=== PATIENT | female | born 1995 | race African-American/Black ===

== ENCOUNTER 2016-12-12 20:50 | Emergency (ER) | payer OTHER ==
[~2016-12-12] VITALS: Ht 154.9 cm; Wt 45.4 kg
[~2016-12-12 20:50] MED LIST: BACTRIM DS 8001 TAB PO; DAILY VALUE1 EACH PO; DEPO-PROVER150 MG/ML IM; JUNEL FE 1 MG-1 EACH PO; MULTIVITAMINS1 EAC8 PO; NAPROXEN500 MG PO; VALACYCLOVIR500 M1 PO; VISTARIL25 M1 PO
--- NOTE | 2016-12-12 22:30 | ED GI/GU/ABDOMINAL COMPLAINT ---
History of Present Illness General Chief Complaint: Abdominal Pain/Flank Pain Stated Complaint: ABD. PAIN X 1WK Source: patient, old records Exam Limitations: no limitations Vital Signs & Intake/Output Vital Signs & Intake/Output Vital Signs Date Time Temp Pulse Resp B/P Pulse O2 O2 Flow FiO2 Ox Delivery Rate 12/12 2330 97.5 76 18 100/70 97 Room Air 12/12 2252 Room Air 12/12 2054 97.3 75 20 97/65 96 Room Air ED Intake and Output 12/13 0000 12/12 1200 Intake Total 0 Output Total Balance 0 Intake, Oral 0 Patient 99 lb 15.99 oz Weight Allergies Coded Allergies: MDX - Apple (APPLE) (MOUTH ITCHES, THROAT ITCHES, EARS ITCH, TINGLING OF TONGUE 09/24/15) Reconcile Medications Hydroxyzine Pamoate (Vistaril) 25 MG CAPSULE 1 CAP PO QHS PRN ANXIETY Hydroxyzine Pamoate (Vistaril) 25 MG CAPSULE 1 CAP PO QHS PRN ANXIETY Medroxyprogesterone Acetate (Depo-Provera) 150 MG/ML SYRINGE 1 ML IM Q3M CONTROL (Reported) Multivitamin (Multivitamins) 1 EACH CAPSULE 1 TAB PO D MALNUTRITION Multivitamin (Daily Value) 1 EACH TABLET 1 TAB PO DAILY OTHER Naproxen 500 MG TAB 1 TAB PO BID PRN PAIN Norethindrone-E.estradiol-Iron (Junel Fe 1 MG-20 Mcg Tablet) 1 MG-20 MCG (21)/75 MG (7) TABLET 1 TAB PO DAILY CONTROL (Reported) Sulfamethoxazole/Trimethopri (Bactrim Ds 800 MG-160 MG) 1 TAB TAB 1 TAB PO BID UTI Valacyclovir HCl (Valacyclovir) 500 MG TABLET 1 TAB PO DAILY HERPES (Reported ) Triage Note: REPORTS ABDOMINAL PAIN X 1 WEEK WITH NAUSEA AND INTERMITTENT VOMITING. SHE WILL LIKE TO RULE OUT . Triage Nurses Notes Reviewed? yes ? N Is pt currently ? No Onset: Abrupt Duration: day(s): (3) Timing: recent history Location: suprapubic Radiation: no radiation Prior Abdominal Problems: none HPI: This is a 21-year-old female presents to the ER with chief complaint of lower abdominal cramping for the past few days. She is questioning whether or not to be . Patient had intercourse on the and and when the occasions a condom broke. She gets very regular. Speech is on a control. Denies any fever or chills. One episode of vomiting. Denies any vaginal discharge or dysuria. Patient presented requesting a test. Past History Travel History Traveled to [place] past 21 day No Medical History Any Pertinent Medical History? 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 No Review of Systems Review of Systems Constitutional: Denies: chills, fever. EENTM: Reports: no symptoms. Respiratory: Denies: cough, short of breath. Cardiovascular: Denies: chest pain. GI: Reports: abdominal pain, nausea, vomiting (X1). Denies: constipation, diarrhea. Genitourinary: Reports: discharge (SPOTTING). Denies: dysuria, frequency, hematuria. Musculoskeletal: Reports: no symptoms. Skin: Reports: no symptoms. Neurological/Psychological: Reports: no symptoms. Hematologic/Endocrine: Reports: bleeding. Denies: bruising, polyuria, polydipsia. Immunologic/Allergic: Denies: splenectomy. All Other Systems: Reviewed and Negative Physical Exam Physical Exam General Appearance: alert, anxious, mild distress, thin Head: atraumatic, normal appearance Eyes: Bilateral: normal appearance, PERRL, EOMI. Ears, Nose, Throat, Mouth: hearing grossly normal, moist mucous membrane Neck: normal inspection, supple, full range of motion Respiratory: normal breath sounds, chest non-tender, no respiratory distress Cardiovascular: regular rate/rhythm Peripheral Pulses: 2+ brachial (L), 2+ radial (L) Gastrointestinal: normal bowel sounds, soft, tenderness (SUPRAPUBIC) Extremities: normal range of motion Neurologic/Psych: no motor/sensory deficits, awake, alert, oriented x 3 Skin: intact, normal color, warm/dry Core Measures ACS in differential dx? No Severe Sepsis Present: No Septic Shock Present: No Progress Differential Diagnosis: UTI/pyelo, , STD Plan of Care: Orders Procedure Date/time Status URINE 12/12 2057 Complete URINALYSIS 12/12 2057 Complete Laboratory Tests 12/12/165: Urinalysis LIGHT H, Urine Color YEL, Urine Clarity CLEAR, Urine pH 6.0, Ur Specific Freeman 1.025, Urine Protein NEG, Urine Ketones NEG, Urine Nitrite NEG, Urine Bilirubin NEG, Urine Urobilinogen 0.2, Ur Leukocyte Esterase NEG, Ur Microscopic SEDIMENT EXAMINED, Urine RBC 1-3, Urine WBC RARE, Ur Epithelial Cells FEW, Urine Mucus FEW, Urine Hemoglobin TRACE-INTACT, Urine Glucose NEG, Urine Test NEGATIVE Urinalysis, urine ordered (LATOYA YOUNGER,THAO) Initial ED EKG: none Departure Departure Time of Disposition: 2315 Disposition: HOME OR SELF CARE Condition: Stable Clinical Impression Primary Impression: Abdominal pain Referrals: BIANCA YOUNGER,CARISSA Lester (PCP/Family) Additional Instructions: Take Tylenol as needed for abdominal cramping. Clear liquid diet and advance as tolerated. Return to the ER for any worsening symptoms, fever, chills, vomiting. 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 Departure Forms: Customer Survey General Discharge Information
[2016-12-12 23:30] VITALS: BP 100/70
== END 2016-12-13 00:05 ==
LOC: ERH 20:50
DX: R10.30 Lower abdominal pain, unspecified (principal)
CPT/HCPCS: 81001; 81025

== ENCOUNTER → 2017-02-08 | Day surgery (SDC) | payer OTHER ==
[~2017-02-08] VITALS: Ht 154.9 cm; Wt 47.6 kg
[~2017-02-08] MED LIST changes: +LIDOCAINE35.44 GM TOP
--- NOTE | 2017-02-09 11:30 | Operative Report ---
Operative/Inv Procedure Report Surgery Date: 02/08/17 Name of Procedure: D&C hysteroscopy Pre-Operative Diagnosis: Abnormal uterine bleeding Post-Operative Diagnosis: Same Estimated Blood Loss: scant Surgeon/Equine Vet: RILEY ELLIOTT MD Anesthesia: moderate sedation Operative/Procedure Note Note: The patient was brought to the operating room and placed on the OR table in the dorsal supine position. She was given adequate anesthesia and repositioned in a modified dorsal lithotomy. She was prepped and draped in usual sterile fashion. A weighted speculum was inserted into the vagina with help of a Griffin retractor single-tooth tenaculum was attached to the anterior lip of the cervix. The cervix was injected with 1% lidocaine with epinephrine 2-1/2 mL in each quadrant. An endocervical curettage was performed revealing a moderate amount of tissue. The uterus was then sounded to 8 cm anteverted. The cervix was serially dilated to accommodate the hysteroscope. The hysteroscope was placed and the saline infusion was activated. The johnson of the uterus were completely thinned out and there was no fibroid or polyp noted throughout the endometrial cavity. Hysteroscope was then removed the cervix was further dilated and an endometrial curettage was performed revealing a minimal amount of tissue. At this point the isthmus removed patient was awakened and sent to recovery in good condition. All needle, sponge, and instrument counts were correct at the end of the procedure 2.
== END ==
LOC: STS 03:57
DX: N93.9 Abnormal uterine and vaginal bleeding, unspecified (principal)
CPT/HCPCS: 81025; 88305; J2250

== ENCOUNTER 2017-03-17 20:21 | Emergency (ER) | payer OTHER ==
[~2017-03-17] VITALS: Ht 170.2 cm; Wt 52.2 kg
[~2017-03-17 20:21] MED LIST changes: -LIDOCAINE35.44 GM TOP
--- NOTE | 2017-03-17 20:24 | ED PSYCHIATRIC COMPLAINT ---
History of Present Illness General Chief Complaint: Psychiatric Related Complaint Stated Complaint: BIBA +SI, ANXIETY ATTACK, HYPERVENTILATING Source: patient, EMS Exam Limitations: PT IS TEARFUL, NOT RESPONDING TO QUESTIONS Vital Signs & Intake/Output Vital Signs & Intake/Output Vital Signs Date Time Temp Pulse Resp B/P B/P Pulse O2 O2 Flow FiO2 Mean Ox Delivery Rate 03/18 1152 97.1 76 18 113/57 98 Room Air 03/18 0657 96.0 69 16 104/49 100 Room Air Room Air 03/17 2305 97.8 66 20 111/59 100 Room Air 03/17 2112 97.1 94 22 130/78 96 Room Air 03/17 2032 Room Air ED Intake and Output 03/18 0000 03/17 1200 Intake Total 0 Output Total Balance 0 Intake, Oral 0 Patient 115 lb Weight Weight Estimated Measurement Method Allergies Coded Allergies: apple (THROAT ITCHES, EAR ITCHES, MOUTH ITCHES, TINGLING OF TONGUE 03/17/17) Reconcile Medications Lidocaine HCl (Lidocaine) 5 % OINT...G. 1 AMIRA TOP BID AFFECTED AREA(S) ( Reported) Norethindrone-E.estradiol-Iron (Junel Fe 1 MG-20 Mcg Tablet) 1 MG-20 MCG (21)/75 MG (7) TABLET 1 TAB PO DAILY CONTROL (Reported) Triage Nurses Notes Reviewed? yes Onset: Gradual Duration: hour(s): Timing: single episode today Severity: moderate Associated Symptoms: anxiety, suicidal ideation, TEARFULNESS HPI: 21 yo woman presents with tearfulness, anxiety, and suicidal ideation after an argument with family. (ANGELIKA YOUNGER,LANETTE De La Rosa) Past History Travel History Traveled to [place] past 21 day No Medical History Any Pertinent Medical History? 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 No (ANGELIKA YOUNGER,LANETTE De La Rosa) Review of Systems Review of Systems Constitutional: Reports: no symptoms. EENTM: Reports: no symptoms. Respiratory: Reports: no symptoms. Cardiovascular: Reports: no symptoms. GI: Reports: no symptoms. Genitourinary: Reports: no symptoms. Musculoskeletal: Reports: no symptoms. Skin: Reports: no symptoms. Neurological/Psychological: Reports: no symptoms. Hematologic/Endocrine: Reports: no symptoms. Immunologic/Allergic: Reports: no symptoms. All Other Systems: Reviewed and Negative (ANGELIKA YOUNGER,LANETTE De La Rosa) Physical Exam Physical Exam General Appearance: well developed/nourished, mild distress Head: atraumatic Eyes: Bilateral: PERRL, EOMI. Ears, Nose, Throat: normal pharynx, normal ENT inspection, hearing grossly normal Neck: normal inspection, supple Respiratory: normal breath sounds Cardiovascular: regular rate/rhythm Gastrointestinal: soft, non-tender Extremities: normal range of motion Neurological/Psychiatric: tearfulness, anxiety Appearance/Memory/Insight: appropriate appearance Behavoir/Eye Contact/Speech: avoids eye contact, refused to answer, tearfulness Thoughts/Hallucinations: no apparent hallucination Skin: intact, normal color, warm/dry SAD PERSONS SAD PERSONS Response Value Depression/Hopelessness? yes 2 Social Support? has no support 1 Total 3 SAD PERSONS Done? yes (ANGELIKA YOUNGER,LANETTE De La Rosa) Progress Differential Diagnosis: anxiety, suicidality vs other. Plan of Care: Orders Procedure Date/time Status Regular Diet 03/18 B Active Continuous Observation Monitor 03/18 1900 Active Continuous Observation Monitor 03/18 1500 Active Continuous Observation Monitor 03/18 1100 Active Continuous Observation Monitor 03/18 0700 Active Continuous Observation Monitor 03/17 2058 Active ED CRISIS PSYCH CONSULT 03/17 2058 Active URINE DRUG SCREEN FOR ER ONLY 03/17 2033 Complete HUMAN BETA HCG SCREEN 03/17 2033 Complete ETHANOL 03/17 2033 Complete COMPREHENSIVE METABOLIC PANEL 03/17 2033 Complete CBC WITHOUT DIFFERENTIAL 03/17 2033 Complete Laboratory Tests 03/17/17 2221: Anion Gap 10, Estimated GFR > 60, BUN/Creatinine Ratio 13.8, Glucose 89, Calcium 8.9, Total Bilirubin 0.3, AST 18, ALT 32, Alkaline Phosphatase 51, Total Protein 6.3, Albumin 3.8, Globulin 2.5, Albumin/Globulin Ratio 1.5, Total Beta HCG NEGATIVE, CBC w Diff NO MAN DIFF REQ, RBC 4.23, MCV 86.0, MCH 28.2, RDW 13.6, MPV 10.2, Gran % 72.7, Lymphocytes % 19.7 L, Monocytes % 4.3, Eosinophils % 2.9 , Basophils % 0.4, Absolute Granulocytes 6.3, Absolute Lymphocytes 1.7, Absolute Monocytes 0.4, Absolute Eosinophils 0.3, Absolute Basophils 0, PUBS MCHC 32.8 L , Serum Alcohol < 10.0 03/17/173: Urine Opiates Screen < 100.00, Methadone Screen 46, Barbiturate Screen < 60, Ur Phencyclidine Scrn < 6.00, Amphetamines Screen < 100, U Benzodiazepines Scrn < 85, Urine Cocaine Screen < 50, Urine Cannabis Screen > 80.00 H Hand-Off Endorsed To: GODFREY ALFARO MD (ANGELIKA YOUNGER,LANETTE De La Rosa) Comments: Cleared by psychiatry for discharge (GODFREY ALFARO MD) Departure Departure Condition: Stable Clinical Impression Primary Impression: Depression Secondary Impressions: Cannabis abuse Referrals: CARISSA VALENZUELA MD (PCP/Family) Departure Forms: Customer Survey General Discharge Information Comments pt evaluated by crises... pt to have a bed search for admission. (LANETTE CARNEY MD) Departure Time of Disposition: 1446 Disposition: HOME OR SELF CARE Additional Instructions: Follow up with the recommendations of the warehouse insulation worker (GODFREY ALFARO MD)
[2017-03-17] MEDS ORDERED: LIDOCAINE35.44 GM TOP (20:42)
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
[2017-03-17 22:27] LABS: ABSOLUTE BASOPHIL COUNT 0 /CUMM (0.0-0.2); ABSOLUTE EOSINOPHIL COUNT 0.3 /CUMM (0.0-0.7); ABSOLUTE GRANULOCYTE CT 6.3 /CUMM (1.4-6.5); ABSOLUTE LYMPH COUNT 1.7 /CUMM (1.2-3.4); ABSOLUTE MONOCYTE COUNT 0.4 /CUMM (0.10-0.60); BASOPHIL % 0.4 % (0.0-2.0); EOSINOPHIL % 2.9 % (0-5); GRANULOCYTE % 72.7 % (42.2-75.2); HEMATOCRIT 36.4 % (37-47); MEAN CORPUSCULAR HGB 28.2 PG (27.0-31.0); MEAN CORPUSCULAR HGB CONC 32.8 G/DL (33.0-37.0); MEAN PLATELET VOLUME 10.2 FL (7.4-10.4); PLATELET COUNT 168 /CUMM (130-400); RBC DISTRIBUTION WIDTH 13.6 % (11.5-14.5); RED BLOOD CELL CT 4.23 /CUMM (4.20-5.40); WHITE BLOOD CELL COUNT 8.7 /CUMM (4.8-10.8)
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
--- NOTE | 2017-03-18 14:39 | ED PSYCHIATRIST/APRN CONSULT ---
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 She notes that she uttered statements around hurting herself in the setting of arugment with borther. She notes long-standing interpersonal difficulty with family. She notes supportive uncle who lives [place] and plans to contact him so that she can move away from her family. She denies current active or passive SI. Denies SI. Denies manic, psychotic or trauma-related sx. Notes poor mood. Amenable to outpatient f/u. MSE younger than stated age, cooperative, engaged, good eye contact, no psychomotor agitation or retardation, mood "ok" affect sad, appropriate, full range, non- labile, denies Si or HI, denies AVHs, linear and goal directed thought process, does not appear to be responding to internal stimuli. A/P: pt with some poor mood and anxiety in the setting of interpersonal conflict who uttered concerning statement in the heat of verbal altercation with brother. No evidence for passive or active SI or SA in the past. Family members have no concerns about safety. Pt would benefit from treatment of anxiety and depression as well as increased support. At this time, pt is not a danger to self or others. - Pt given appointment for [facility] - mother to pickle maker and is amenable to facilitating treatment for her daughter - pt educated can call 911 or come to hospital if thoughts of harm to self or others or worsening depression or anxiety.
[2017-03-18 15:10] VITALS: BP 123/56
== END 2017-03-18 16:10 ==
LOC: ERH 20:21
PROVIDERS: Pediatrics
DX: F32.9 Major depressive disorder, single episode, unspecified (principal); F12.10 Cannabis abuse, uncomplicated
CPT/HCPCS: 80307; G0463; G0480

== ENCOUNTER 2017-05-17 12:48 | Emergency (ER) | payer OTHER ==
[~2017-05-17] VITALS: Ht 152.4 cm; Wt 49.9 kg
[~2017-05-17 12:48] MED LIST changes: +LIDOCAINE35.44 GM TOP
[2017-05-17 12:53] VITALS: BP 106/69
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
--- NOTE | 2017-05-17 14:10 | RADIOLOGY REPORT ---
EXAMINATION: XR FOREARM, WRIST LEFT CLINICAL INFORMATION: Pain status post trauma. COMPARISON: None TECHNIQUE: AP and lateral views of the left forearm were obtained. FINDINGS: Bone mineral density is maintained without evidence of fracture or dislocation. No focal osseous lesions are seen. There is lunotriquetral fusion, normal variation. Joint space is maintained without productive or erosive changes. IMPRESSION: Unremarkable examinations.
[2017-05-17] MEDS ORDERED: IBUPROFEN600 M1 PO (16:05)
== END 2017-05-17 16:11 ==
LOC: ERH 12:48
DX: S63.502A Unspecified sprain of left wrist, initial encounter (principal); Y35.893A Legal intervention involving other specified means, suspect injured, initial encounter; Y92.9 Unspecified place or not applicable; Y93.9 Activity, unspecified; M25.522 Pain in left elbow; F17.210 Nicotine dependence, cigarettes, uncomplicated
CPT/HCPCS: 73090-LT; 73110-LT; 80307; 81025

== ENCOUNTER 2017-12-20 12:01 | Inpatient (IN) | payer OTHER ==
[~2017-12-20] VITALS: Ht 157.5 cm; Wt 45.5 kg
[~2017-12-20 12:01] MED LIST changes: +BACTRIM DS TAB1 EACH PO; +DIFLUCAN150 M1 PO; +IBUPROFEN600 M1 PO; +PYRIDIUM100 M1 PO
--- NOTE | 2017-12-20 12:05 | ED PSYCHIATRIC COMPLAINT ---
History of Present Illness General Chief Complaint: Psychiatric Related Complaint Stated Complaint: BIBA FOR SI/OD Allergies Coded Allergies: apple (THROAT ITCHES, EAR ITCHES, MOUTH ITCHES, TINGLING OF TONGUE 03/17/17) Reconcile Medications Fluconazole (Diflucan) 150 MG TABLET 1 TAB PO ONCE PROPHYLAXIS Ibuprofen 600 MG TABLET 1 TAB PO TID PRN PAIN with food Lidocaine HCl (Lidocaine) 5 % OINT...G. 1 AMIRA TOP BID AFFECTED AREA(S) ( Reported) Norethindrone-E.estradiol-Iron (Junel Fe 1 MG-20 Mcg Tablet) 1 MG-20 MCG (21)/75 MG (7) TABLET 1 TAB PO DAILY CONTROL (Reported) Phenazopyridine HCl (Pyridium) 100 MG TABLET 1-2 TAB PO TID PRN DYRSURIA MAY TURN URINE ORANGE, TAKE WITH FOOD Sulfamethoxazole/Trimethoprim (Bactrim Ds Tablet) 800 MG-160 MG TABLET 1 TAB PO BID UTI Past History Travel History Traveled to [place] past 21 day No Medical History Neurological: NONE EENT: NONE Cardiovascular: NONE Respiratory: NONE Gastrointestinal: NONE Hepatic: NONE Renal: NONE Musculoskeletal: OSTEOGENESIS IMPERFECTA Psychiatric: anxiety, depression Endocrine: NONE Blood Disorders: NONE Cancer(s): NONE 

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
[2017-12-20 12:53] LABS: ABSOLUTE BASOPHIL COUNT 0 /CUMM (0.0-0.2); ABSOLUTE EOSINOPHIL COUNT 0 /CUMM (0.0-0.7); ABSOLUTE GRANULOCYTE CT 2.8 /CUMM (1.4-6.5); ABSOLUTE LYMPH COUNT 0.9 /CUMM (1.2-3.4); ABSOLUTE MONOCYTE COUNT 0.2 /CUMM (0.10-0.60); BASOPHIL % 0.3 % (0.0-2.0); EOSINOPHIL % 0.9 % (0-5); GRANULOCYTE % 70.2 % (42.2-75.2); HEMATOCRIT 35.2 % (37-47); MEAN CORPUSCULAR HGB 28.1 PG (27.0-31.0); MEAN CORPUSCULAR HGB CONC 33.1 G/DL (33.0-37.0); MEAN CORPUSCULAR VOLUME 84.8 FL (81.0-99.0); MEAN PLATELET VOLUME 9.9 FL (7.4-10.4); PLATELET COUNT 161 /CUMM (130-400); RBC DISTRIBUTION WIDTH 13.4 % (11.5-14.5); RED BLOOD CELL CT 4.15 /CUMM (4.20-5.40)
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
--- NOTE | 2017-12-20 18:45 | ED PSYCH CRISIS CONSULTATION ---
Crisis Consult Basic Assessment Date of Consult: 12/20/17 Responsible Person/Accompanied By: CLARITA Insurance Authorization: Insurance #1: Insurance name: [employer] Phone number: Policy number: Group number: Authorization number: ED Provider: Patient's ED Provider: Deysi Marcos MD Primary Care Physician: Patient's PCP: Saul Trevino MD PCP's Current Psychiatrist: [facility] Chief Complaint: Psychiatric Related Complaint Who Do You Live With? Other (see notes) Allergies - Coded Allergies: apple (THROAT ITCHES, EAR ITCHES, MOUTH ITCHES, TINGLING OF TONGUE 03/17/17) Current Medications - Scheduled Medications Fluconazole (Diflucan) 150 MG TABLET 1 TAB PO ONCE PROPHYLAXIS #1 TAB Prescribed by Pamela Cardoza on 10/03/17 Lidocaine HCl (Lidocaine) 5 % OINT...G. 1 AMIRA TOP BID AFFECTED AREA(S) ( Reported) Entered as Reported by Aziza Dior on 03/17/172041 Norethindrone-E.estradiol-Iron (Junel Fe 1 MG-20 Mcg Tablet) 1 MG-20 MCG (21)/75 MG (7) TABLET 1 TAB PO DAILY CONTROL #28 (Reported) Entered as Reported by Renetta Philip on 11/12/16 1354 Scheduled PRN Medications Ibuprofen 600 MG TABLET 1 TAB PO TID PRN PAIN #30 TAB Prescribed by Mega Krishna DO on 05/17/17 Phenazopyridine HCl (Pyridium) 100 MG TABLET 1-2 TAB PO TID PRN DYRSURIA #10 TAB Prescribed by Pamela Cardoza on 10/03/17 Past History Past Medical History Neurological: NONE EENT: NONE Cardiovascular: NONE Respiratory: NONE Gastrointestinal: NONE Hepatic: NONE Renal: NONE Musculoskeletal: OSTEOGENESIS IMPERFECTA Psychiatric: anxiety, depression Endocrine: NONE Blood Disorders: NONE Cancer(s): NONE 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 is motivated to pursue higher education and is interested in either cosmetology or pre-veterinary medicine. Pt. is active in her restorationism. Physical Limitations (Interventions): None indicated Psychiatric Treatment History Diagnosis by History: Unknown - no past mental health treatment history reported by patient. Departure Disposition Referrals Uriel YOUNGER,Saul Lester (PCP/Family) Saul Trevino MD. (PCP/Family)
--- NOTE | 2017-12-20 19:10 | ED PSYCH CRISIS CONSULTATION ---
See Addendum Crisis Consult Basic Assessment Date of Consult: 12/20/17 Responsible Person/Accompanied By: BIBA/PEER Insurance Authorization: Insurance #1: Insurance name: UNINSURED LOVE Phone number: Policy number: Group number: Authorization number: ED Provider: Patient's ED Provider: Deysi Marcos MD Primary Care Physician: Patient's PCP: Saul Trevino MD PCP's Current Psychiatrist: [facility] Chief Complaint: Psychiatric Related Complaint Patient's Quote: "I took a few pills" Present Illness: Pt is a 22 year female arriving to ER on [facility]ER, for taking a few pills in an attempt to suicide. Pt has no previous attempts and has never been admitted to an inpatient hospital before. She is seen for therapy at [facility], her counselor is Mira. Pt was prescribed Atarax in the ER, and that is what she took today, with intention not to wake up. Pt denies drug and etoh use tox screen is negative. Pt is shy, quiet, tearful. She offers a male friend of hers, whom she trusted with details of whats going on in her life "he was there for me" , "he told me he wanted me , so I tried". She says this as a matter of fact. She indicates he kept telling her this over and over, he has some influence over you, but would you now consider him a friend, when asked this she stated no, he got weird, I just knew him from school, he was there for me, pt begins to cry softly. She states she "was overthinking, and wasn't thinking at the time" in regards to taking the pills. She is not talkative. She appears sad, not focused. She eats and sleeps well. Denies hi/ah/vh. She lives at home with her Mother, and works at [employer], she does perk up and show a small smile, when I mention that [employer] has delicious grilled cheese. Aside from this smile, she has flat affect. She denies having a presciber at [facility], and has no other psych services. She is aware that she will be held over tonight with the plan to be admitted to inpatient, currently bed search unless a bed opens [facility]. Spoke to her Mom earlier and she had stated she was concerned for her safety and felt inpatient would be helpful. Patient's Address: [address] [place] [address] [address] Other Phone Number: Who Do You Live With? Other (see notes) Family/Informants Interviewed: see collateral Allergies - Coded Allergies: apple (THROAT ITCHES, EAR ITCHES, MOUTH ITCHES, TINGLING OF TONGUE 03/17/17) Laboratory Results: Laboratory Tests 12/20/17 1242: Anion Gap 8, Estimated GFR > 60, BUN/Creatinine Ratio 10.0, Glucose 82, Calcium 9.2, Total Bilirubin 0.5, AST 17, ALT 23, Alkaline Phosphatase 53, Total Protein 6.0 L, Albumin 3.6, Globulin 2.4, Albumin/Globulin Ratio 1.5, CBC w Diff NO MAN DIFF REQ, RBC 4.15 L, MCV 84.8, MCH 28.1, MCHC 33.1, RDW 13.4, MPV 9.9, Gran % 70.2, Lymphocytes % 23.3, Monocytes % 5.3, Eosinophils % 0.9, Basophils % 0.3, Absolute Granulocytes 2.8, Absolute Lymphocytes 0.9 L, Absolute Monocytes 0.2, Absolute Eosinophils 0, Absolute Basophils 0, Salicylates < 1.0, Acetaminophen < 10.0 L, Serum Alcohol < 10.0 12/20/17 1220: Urine Opiates Screen < 100.00, Methadone Screen < 40, Barbiturate Screen < 60, Ur Phencyclidine Scrn < 6.00, Amphetamines Screen < 100, U Benzodiazepines Scrn < 85, Urine Cocaine Screen < 50, Urine Cannabis Screen 5.50, Urine Test NEGATIVE (Izabela Goldman LCSW) Current Medications - Scheduled Medications Fluconazole (Diflucan) 150 MG TABLET 1 TAB PO ONCE PROPHYLAXIS #1 TAB Prescribed by Pamela Cardoza on 10/03/17 Lidocaine HCl (Lidocaine) 5 % OINT...G. 1 AMIRA TOP BID AFFECTED AREA(S) ( Reported) Entered as Reported by Aziza Dior on 03/17/172041 Norethindrone-E.estradiol-Iron (Junel Fe 1 MG-20 Mcg Tablet) 1 MG-20 MCG (21)/75 MG (7) TABLET 1 TAB PO DAILY CONTROL #28 (Reported) Entered as Reported by Renetta Philip on 11/12/16 1354 Scheduled PRN Medications Ibuprofen 600 MG TABLET 1 TAB PO TID PRN PAIN #30 TAB Prescribed by Mega Krishna DO on 05/17/17 Phenazopyridine HCl (Pyridium) 100 MG TABLET 1-2 TAB PO TID PRN DYRSURIA #10 TAB Prescribed by Pamela Cardoza on 10/03/17 (Hannah Bourne LCSW) Past History Past Medical History Neurological: NONE EENT: NONE Cardiovascular: NONE Respiratory: NONE Gastrointestinal: NONE Hepatic: NONE Renal: NONE Musculoskeletal: OSTEOGENESIS IMPERFECTA Psychiatric: anxiety, depression Endocrine: NONE Blood Disorders: NONE Cancer(s): NONE 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 is motivated to pursue higher education and is interested in either cosmetology or pre-veterinary medicine. Pt. is active in her adventist. Physical Limitations (Interventions): None indicated Psychiatric Treatment History Psych Treatment Psychiatric Treatment Yes Inpatient Treatment No Outpatient Treatment Yes Location of Treatment [facility] Reason for Treatment depression Dates of Treatment currently Response to Treatment unknown Diagnosis by History: "depression" Substance Use/Abuse History Drug Use/Abuse Substances Used/Abused No Substance Abuse Treatment Substance Abuse Treatment Past Substance Abuse [place] No (Izabela Goldman LCSW) Current Mental Status Mental Status Orientation: Person, Place, Situation Affect: Depressed, Flat, Hopeless, Sad Speech: Soft Neuro-vegetative: Concentration Poor, Energy Decreased, Loss of Interest Appearance Appearance- Dress/Hygiene: slightly unkempt, otherwise appropriate Behaviors Thought Process: WNL Thought Content: WNL Memory: WNL Insight: Poor SI/HI Risk Assessment Past Suicidal Ideation/Attempts No Current Suicidal Ideation/Att Yes Past Homicidal Ideation/Att: No Current Homicidal Ideation/Attempts No Degree of Intent: Made Preparations Danger To: Self Gravely Disabled: Lack of Insight, Poor Impulse Control, Poor Judgment Risk Factors: age (under 24/over 65), high anxiety/distress, history of suicide atmpts, lack of outcome concern, limited support Lethality Ratin PTSD Checklist PTSD Done? 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 Pena, bed search, unless a bed [facility] opens. Referrals Uriel YOUNGER,Saul Lester (PCP/Family) (Izabela Goldman LCSW) Addendum Addendum Crisis re-evalauted pt this am. Pt stated she feels a lot better. She rates 0/10 for anxiety and depression. She is sleeping and appetite is normal. SHe denies SI/HI/AH/VH at present. No hx of psychosis. Pt said " this was totally unlike me." Pt would like to go home. She is not in agreement with inpatient hospitalization. Crisis discussed risks and poor judgement of attempted suicide and that pt is acute risk to self. Pt said she understands and if needed she will sign in voluntary at this time. Per collateral with mom: SW checked in and explained the current bed situation. Mom said she would feel safe with her daughter being discharged as she lives with her. Pt is in tx with [facility]. This advertising copywriter explained safety concerns given pt's suicide attempt and will review with psychiatrist. Case reviewed with Dr. Pena and recommends continued bed search given pt's intentional suicide attempt. ISADORA informed both mom and pt and is in agreement with the plan. (Hannah Bourne LCSW)
--- NOTE | 2017-12-21 15:11 | SOCIAL WORKER SOCIAL HX PSYCH ---
Social History Basic Assessment Insurance Authorization: Insurance #1: Insurance name: [employer]INS[employer] LOVE Phone number: Policy number: Group number: Authorization number: Member Name Member ID Member Subscriber Name Subscriber ID GRETA [id number] 1995 [id number] [id number] Pended Authorization # Client Authorization # Type of Request [id number] INITIAL Date of Admission/ Start of Services Requested From Submission Date Curr Source of Income/Entitlements: [facility] Primary Care Physician: Patient's PCP: Saul Trevino MD PCP's Present Problem: Pt is a 22 year female arriving to ER on PEER, for taking a few pills in an attempt to suicide. Pt has no previous attempts and has never been admitted to an inpatient hospital before. She is seen for therapy at [facility], her counselor is Mira. Pt was prescribed Atarax in the ER, and that is what she took today, with intention not to wake up. Pt denies drug and etoh use tox screen is negative. Pt is shy, quiet, tearful. She offers a male friend of hers, whom she trusted with details of whats going on in her life "he was there for me" , "he told me he wanted me , so I tried". She says this as a matter of fact. She indicates he kept telling her this over and over, he has some influence over you, but would you now consider him a friend, when asked this she stated no, he got weird, I just knew him from school, he was there for me, pt begins to cry softly. She states she "was overthinking, and wasn't thinking at the time" in regards to taking the pills. She is not talkative. She appears sad, not focused. She eats and sleeps well. Denies hi/ah/vh. She lives at home with her Mother, and works at [employer], she does perk up and show a small smile, when I mention that [employer] [facility] has delicious grilled cheese. Aside from this smile, she has flat affect. She denies having a presciber at [facility], and has no other psych services. She is aware that she will be held over tonight with the plan to be admitted to inpatient, currently bed search unless a bed opens in [facility]. Spoke to her Mom earlier and she had stated she was concerned for her safety and felt inpatient would be helpful. >>>>>>Izabela Robertstawny [facility] Crisis re-evalauted pt this am. Pt stated she feels a lot better. She rates 0/10 for anxiety and depression. She is sleeping and appetite is normal. SHe denies SI/HI/AH/VH at present. No hx of psychosis. Pt said " this was totally unlike me." Pt would like to go home. She is not in agreement with inpatient hospitalization. Crisis discussed risks and poor judgement of attempted suicide and that pt is acute risk to self. Pt said she understands and if needed she will sign in voluntary at this time. Per collateral with mom: SW checked in and explained the current bed situation. Mom said she would feel safe with her daughter being discharged as she lives with her. Pt is in tx with [facility]. This typewriter assembly and parts inspector explained safety concerns given pt's suicide attempt and will review with psychiatrist. Case reviewed with Dr. Pena and recommends continued bed search given pt's intentional suicide attempt. SW informed both mom and pt and is in agreement with the plan. Pt will be admitted to [facility] . She signed in Voluntary and TEMP ID given : [id number] Primary Language? [place]an Language(s) Spoken At Home: [place]an Living Situation Other Living Arrangement: relative's/guardian's niesha Feel Safe Where You Are Living Yes Allergies - Coded Allergies: apple (THROAT ITCHES, EAR ITCHES, MOUTH ITCHES, TINGLING OF TONGUE 03/17/17) Current Medications - Scheduled Medications Fluconazole (Diflucan) 150 MG TABLET 1 TAB PO ONCE PROPHYLAXIS #1 TAB Prescribed by Pamela Cardoza on 10/03/17 Lidocaine HCl (Lidocaine) 5 % OINT...G. 1 AMIRA TOP BID AFFECTED AREA(S) ( Reported) Entered as Reported by Aziza Dior on 03/17/172041 Norethindrone-E.estradiol-Iron (Junel Fe 1 MG-20 Mcg Tablet) 1 MG-20 MCG (21)/75 MG (7) TABLET 1 TAB PO DAILY CONTROL #28 (Reported) Entered as Reported by Renetta Philip on 11/12/16 1354 Scheduled PRN Medications Ibuprofen 600 MG TABLET 1 TAB PO TID PRN PAIN #30 TAB Prescribed by Mega Krishna DO on 05/17/17 Phenazopyridine HCl (Pyridium) 100 MG TABLET 1-2 TAB PO TID PRN DYRSURIA #10 TAB Prescribed by Pamela Cardoza on 10/03/17 Past History Past Medical History Neurological: NONE EENT: NONE Cardiovascular: NONE Respiratory: NONE Gastrointestinal: NONE Hepatic: NONE Renal: NONE Musculoskeletal: OSTEOGENESIS IMPERFECTA Psychiatric: anxiety, depression Endocrine: NONE Blood Disorders: NONE Cancer(s): NONE 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 No Mother's Age (Current/): 46 Relationship w/Mother: we don't talk much Father's Age (Current/): 52 Relationship w/Father: no relationship Any Sibling(s)? Yes Sibling's Gender(s)/Age(s): male Sibling 1:, male Sibling 2:, female Sibling 3: Relationship w/Sibling(s): good Relationship w/Friends: ok Number of Pregnancies: 0 Number of Miscarriages: 0 Number of Abortions: 0 Abuse/Trauma History Trauma History/Current Trauma: Denies Legal History Legal Guardian/Address/Phone: none Current Legal Status: none Have you ever been arrested Yes Number of Arrests: 1 Hx of Juvenile Legal Charges? Yes If Yes: status offense Hx of Adult Legal Charges? No Civil Proceedings: none Domestic Relations Court: none Child Protective Serv Involvmnt none Construction Secretary na Psychosocial History Primary Support System: mother Strengths/Capabilities: Pt. is motivated to pursue higher education and is interested in either cosmetology or pre-veterinary medicine. Pt. is active in her taoist. Weaknesses: poor insight Physical Limitations (Interventions): None indicated Last Physical: unknown History of Seizures? Yes Last Seizure: 6 years old History of Blackouts? No ADL Limitations: none [place]/Social/Peer Relations yes Meaningful Activities: none stated Childhood Scientology: no taoist stated Current Presybeterian Affiliation: no taoist stated Is Spirituality Important to You? yes Patient's Ethnicity: Cultural/Ethnic Issues: none stated Are There Developmental Issues? No Milestones Achieved: fine motor, gross motor Psychiatric Treatment History Psych Treatment Inpatient Treatment No Outpatient Treatment Yes Location of Treatment [facility] Reason for Treatment depression Dates of Treatment currently Response to Treatment unknown Diagnosis: "depression" Risk Factors: age (under 24/over 65), high anxiety/distress, history of suicide atmpts, lack of outcome concern, limited support Substance Use/Abuse History Drug Use/Abuse Substance Used/Abused No History Substance Abuse Treatment Substance Abuse Treatment Inpatient Treatment No Outpatient Treatment No Sexual History Sexually Active No # of partners 0 Sexual Orientation Heterosexual Use of Protection Yes Always Sexual Concerns: none Education History Highest Level of Education: high school/GED Highest Grade Completed: 12 Vocational Year Completed: na Number of College Years: 0 College Degree/Major: na Other Degree(s): na Preferred Learning Style: visual HX of Learning Difficulties: None reported Barriers to Learning: None reported Special Communication Needs: None reported Employment History Employment Employed Vocation/Occupational Hx: [employer] No. of Jobs in Last 5 Years: 1 Attendance: Normal Performance: Good Comments: none stated History Have You Been in The ? No Current Mental Status Problem List: 1. Depression 2. Suicidal overdose Mental Status Orientation: Person, Place, Situation Affect: Depressed, Flat, Hopeless, Sad Speech: Soft Neuro-vegetative: Concentration Poor, Energy Decreased, Loss of Interest Appearance Appearance- Dress/Hygiene: slightly unkempt, otherwise appropriate Behaviors Thought Process: WNL Thought Content: WNL Memory: WNL Insight: Poor SI/HI Risk Assessment Past Suicidal Ideation/Attempts No Current Suicidal Ideation/Att Yes Past Homicidal Ideation/Att: No Current Homicidal Ideation/Attempts No Degree of Intent: Made Preparations Danger To: Self Gravely Disabled: Lack of Insight, Poor Impulse Control, Poor Judgment Risk Factors: Age (under 24 or over 65), High Anxiety/Distress, Poor impulse control Lethality Ratin - Conclusion and Recommendations for treatment - and discharge planning Summary: Pt is a 22 year female arriving to ER on PEER, for taking a few pills in an attempt to suicide. Pt has no previous attempts and has never been admitted to an inpatient hospital before. She is seen for therapy at [facility], her counselor is Mira. Pt was prescribed Atarax in the ER, and that is what she took today, with intention not to wake up. Pt denies drug and etoh use tox screen is negative. Pt is shy, quiet, tearful. She offers a male friend of hers, whom she trusted with details of whats going on in her life "he was there for me" , "he told me he wanted me , so I tried". She says this as a matter of fact. She indicates he kept telling her this over and over, he has some influence over you, but would you now consider him a friend, when asked this she stated no, he got weird, I just knew him from school, he was there for me, pt begins to cry softly. She states she "was overthinking, and wasn't thinking at the time" in regards to taking the pills. She is not talkative. She appears sad, not focused. She eats and sleeps well. Denies hi/ah/vh. She lives at home with her Mother, and works at [employer] she does perk up and show a small smile, when I mention that [employer] has delicious grilled cheese. Aside from this smile, she has flat affect. She denies having a presciber at [facility], and has no other psych services. She is aware that she will be held over tonight with the plan to be admitted to inpatient, currently bed search unless a bed opens in [facility]. Spoke to her Mom earlier and she had stated she was concerned for her safety and felt inpatient would be helpful. >>>>>>Izabela Johnson [facility] Crisis re-evalauted pt this am. Pt stated she feels a lot better. She rates 0/10 for anxiety and depression. She is sleeping and appetite is normal. SHe denies SI/HI/AH/VH at present. No hx of psychosis. Pt said " this was totally unlike me." Pt would like to go home. She is not in agreement with inpatient hospitalization. Crisis discussed risks and poor judgement of attempted suicide and that pt is acute risk to self. Pt said she understands and if needed she will sign in voluntary at this time. Per collateral with mom: SW checked in and explained the current bed situation. Mom said she would feel safe with her daughter being discharged as she lives with her. Pt is in tx with [facility]. This typewriter assembly and parts inspector explained safety concerns given pt's suicide attempt and will review with psychiatrist. Case reviewed with Dr. Pena and recommends continued bed search given pt's intentional suicide attempt. SW informed both mom and pt and is in agreement with the plan. [facility] . She signed in Voluntary and TEMP ID given : [id number]
--- NOTE | 2017-12-21 15:11 | IP CRISIS DIAG ASSESS PSYCH ---
Diagnostic Assessment Basic Assessment Insurance Authorization: Insurance #1: Insurance name: [employer] Phone number: Policy number: Group number: Authorization number: Member Name Member ID Member Subscriber Name Subscriber ID GRETA [id number] [id number] Pended Authorization # Client Authorization # Type of Request [id number] INITIAL Date of Admission/ Start of Services Requested From Submission Date Primary Care Physician: Patient's PCP: Saul Trevino MD PCP's Patient's Quote: "I took a few pills" Present Illness: Pt is a 22 year female arriving to ER on [facility], for taking a few pills in an attempt to suicide. Pt has no previous attempts and has never been admitted to an inpatient hospital before. She is seen for therapy at [facility], her counselor is Mira. Pt was prescribed Atarax in the ER, and that is what she took today, with intention not to wake up. Pt denies drug and etoh use tox screen is negative. Pt is shy, quiet, tearful. She offers a male friend of hers, whom she trusted with details of whats going on in her life "he was there for me" , "he told me he wanted me , so I tried". She says this as a matter of fact. She indicates he kept telling her this over and over, he has some influence over you, but would you now consider him a friend, when asked this she stated no, he got weird, I just knew him from school, he was there for me, pt begins to cry softly. She states she "was overthinking, and wasn't thinking at the time" in regards to taking the pills. She is not talkative. She appears sad, not focused. She eats and sleeps well. Denies hi/ah/vh. She lives at home with her Mother, and works at [employer], she does perk up and show a small smile, when I mention that [employer] has delicious grilled cheese. Aside from this smile, she has flat affect. She denies having a presciber at [facility], and has no other psych services. She is aware that she will be held over tonight with the plan to be admitted to inpatient, currently bed search unless a bed opens in [facility]. Spoke to her Mom earlier and she had stated she was concerned for her safety and felt inpatient would be helpful. >>>>>>Izabela Alex [facility] Crisis re-evalauted pt this am. Pt stated she feels a lot better. She rates 0/10 for anxiety and depression. She is sleeping and appetite is normal. SHe denies SI/HI/AH/VH at present. No hx of psychosis. Pt said " this was totally unlike me." Pt would like to go home. She is not in agreement with inpatient hospitalization. Crisis discussed risks and poor judgement of attempted suicide and that pt is acute risk to self. Pt said she understands and if needed she will sign in voluntary at this time. Per collateral with mom: SW checked in and explained the current bed situation. Mom said she would feel safe with her daughter being discharged as she lives with her. Pt is in tx with Care. This aligner typewriter explained safety concerns given pt's suicide attempt and will review with psychiatrist. Case reviewed with Dr. Pena and recommends continued bed search given pt's intentional suicide attempt. SW informed both mom and pt and is in agreement with the plan. Pt will be admitted to [facility] . She signed in Voluntary and TEMP ID given : [id number] Patient's Address: [address] [place] [address] Other Phone Number: Who Do You Live With? Other (see notes) Feel Safe Where You Live? Yes Marital Status: single Do You Have Children? No Primary Language? Spanish Language(s) Spoken At Home: Spanish Family/Informants Interviewed: see collateral Allergies - Coded Allergies: apple (THROAT ITCHES, EAR ITCHES, MOUTH ITCHES, TINGLING OF TONGUE 03/17/17) Current Medications - Scheduled Medications Fluconazole (Diflucan) 150 MG TABLET 1 TAB PO ONCE PROPHYLAXIS #1 TAB Prescribed by Pamela Cardoza on 10/03/17 Lidocaine HCl (Lidocaine) 5 % OINT...G. 1 AMIRA TOP BID AFFECTED AREA(S) ( Reported) Entered as Reported by Aziza Dior on 03/17/172041 Norethindrone-E.estradiol-Iron (Junel Fe 1 MG-20 Mcg Tablet) 1 MG-20 MCG (21)/75 MG (7) TABLET 1 TAB PO DAILY CONTROL #28 (Reported) Entered as Reported by Renetta Philip on 11/12/16 1354 Scheduled PRN Medications Ibuprofen 600 MG TABLET 1 TAB PO TID PRN PAIN #30 TAB Prescribed by Mega Krishna DO on 05/17/17 Phenazopyridine HCl (Pyridium) 100 MG TABLET 1-2 TAB PO TID PRN DYRSURIA #10 TAB Prescribed by Pamela Cardoza on 10/03/17 Past History Past Surgical History Surgical History RT TOE SX Abuse/Trauma History Trauma History/Current Trauma: Denies Legal History Current Legal Status: none Have you ever been arrested? Yes Number of Arrests: [address] Dates: none Home Energy Auditor no Psychosocial History Strengths/Capabilities: Pt. is motivated to pursue higher education and is interested in either cosmetology or pre-veterinary medicine. Pt. is active in her jew. Physical Limitations (Interventions): None indicated Psychiatric Treatment History Psych Treatment Psychiatric Treatment Yes Inpatient Treatment No Outpatient Treatment Yes Location of Treatment [facility] Reason for Treatment depression Dates of Treatment currently Response to Treatment unknown Diagnosis by History: "depression" Risk Factors: age (under 24/over 65), high anxiety/distress, history of suicide atmpts, lack of outcome concern, limited support Substance Use/Abuse History Drug Use/Abuse minimum 12mo Hx Substances Used/Abused No Substance Abuse Treatment Substance Abuse Treatment Past Substance Abuse TX No Inpatient Treatment No Outpatient Treatment No Sexual History Sexually Active No # of partners 0 Sexual Orientation Heterosexual Use of Protection Yes Always Sexual Concerns: none Education History Highest Level of Education: high school/GED Preferred Learning Style: visual Current Mental Status Mental Status Orientation: Person, Place, Situation Affect: Depressed, Flat, Hopeless, Sad Speech: Soft Neuro-vegetative: Concentration Poor, Energy Decreased, Loss of Interest Appearance Appearance- Dress/Hygiene: slightly unkempt, otherwise appropriate Behaviors Thought Process: WNL Thought Content: WNL Memory: WNL Insight: Poor SI/HI Risk Assessment - Minimum 6mo History- Past Suicidal Ideation/Attempts No Current Suicidal Ideation/Att Yes Past Homicidal Ideation/Att: No Current Homicidal Ideation/Attempts No Degree of Intent: Made Preparations Danger To: Self Gravely Disabled: Lack of Insight, Poor Impulse Control, Poor Judgment Risk Factors: age (under 24/over 65), high anxiety/distress, history of suicide atmpts, lack of outcome concern, limited support Lethality Ratin Needs/Init TX Plan/Goals: Mood stabilization and safety, medication consultation, group and individual therpay, family meeting and coping skills. AUDIT-C Questionnaire: AUDIT-C Questionnaire: Response Value ETOH use in the past year Never 0 # drinks typical/day Doesn't Drink 0 6 or > drinks per occasion Never 0 Total 0 DSM5/PS Stressors/Medical Prob Diagnosis' (DSM 5, Stressors, Medical): Unspecified depressive D/O F32.9 medical: denies interpersonal relationships Current GAF: 22
[2017-12-21 16:50] VITALS: BP 99/64
[2017-12-21 19:31] VITALS: BP 108/72
[2017-12-22 07:34] VITALS: BP 102/61
--- NOTE | 2017-12-22 12:10 | CPS PROVIDER INIT ASMT PSYCH ---
Psychiatric Admission Metal Roofer's Note Reviewed: Yes Patient Seen and Examined: Yes Identifying Information: The patient is a 22-year-old single -Azerbaijani female who was admitted last night Chief Complaint: The patient had an overdose on medications Reaction to Hospitalization: The patient did not want to be hospitalized and signed a three-day paper as soon as she was admitted to the inpatient psychiatric unit History of Present Illness Onset of Illness: The onset was pretty sudden and from her description seems to be pretty impulsive there was no premeditation or preplanning of the overdose reportedly this happened after a male friend told her to kill herself or that he wanted her , this happened over the phone Circumstances Leading to Admission: And overdose Problem(s) Justifying Need for Admission: Overdose of medication Past Psychiatric History Past Diagnosis(es)- if any: Patient has been seeing a therapist at [facility] the patient was experiencing symptoms of anxiety as well as depressive symptoms since the passing away of her boyfriend when she was about 17 Past Precipitating Factors- if any: No previous psychiatric admissions - Include inpatient and outpatient treatment Treatment History: The patient has never been on inpatient psychiatric units and no previous suicide attempts the patient has never been on psychiatric medication she has been in weekly individual therapy with [facility] for about a year or so History of Suicide Attempts or Gestures No previous suicide attempt Substance Abuse History: No history of alcohol or substance abuse Allergies: Coded Allergies: apple (THROAT ITCHES, EAR ITCHES, MOUTH ITCHES, TINGLING OF TONGUE 03/17/17) Home Med List: None - Include any medical condition(s) that may - impact the patient's recovery/remission Past Medical History: The patient reported that there were complications after her and she was in the ICU for about 2 months after her Past History Medical History Neurological: NONE EENT: NONE Cardiovascular: NONE Respiratory: NONE Gastrointestinal: NONE Hepatic: NONE Renal: NONE Musculoskeletal: OSTEOGENESIS IMPERFECTA Psychiatric: anxiety, depression Endocrine: NONE Blood Disorders: NONE Cancer(s): NONE SYSTEMS SOFTWARE DEVELOPER/Reproductive: genital herpes History of MRSA: No History of VRE: No History of CDIFF: No Surgical History Surgical History: RT TOE SX Psychiatric Family/Social Hx Family History Psychiatric Illness: No known family psychiatric history Substance Use: No known family history of alcohol or substance abuse Suicides: Denied any completed suicides among her blood relations Other Family History: The patient lives with her mother and stepfather Social History Living Situation: The patient lives with her mother and step Significant Relationships (family/friends): Mother and stepfather Education: The patient finished high school with a high school diploma Vocation/Occupation: She currently works full-time for [employer] Legal: No legal entanglements Healthly Behaviors Screening Tobacco Screening Tobacco Use from ED Docu: Never used - If tobacco counseling indicated - the following topics are required. - #1 Recognizing dangerous situations. - #2 Coping Skills. - #3 Basic information about quitting. Status of Tobacco Cessation Counseling: Not Applicable Cessation Med Status Not Applicable Alcohol Screening - ETOH screen POS if BAL >=80 or Audit-C>= M4/F3 Audit-C Score from Diag Assess: 0 Blood Alcohol Level: Laboratory Tests 12/20 1242 Toxicology Serum Alcohol (<10 MG/DL) < 10.0 Alcohol Use Screening Results: Neg per Audit C &/or BAL - If ETOH counseling indicated - the following topics are required. - #1 Express concern about the patient's - drinking at unhealthy levels, include informing - of national norms for moderate drinking: - men <= 14 drinks/week, max 4 drinks/occasion - women <= 7 drinks/week, max 3 drinks/occasion - #2 Providing feedback, including linking alcohol to - negative physical effects (liver injury, hypertension) - negative emotional effects (relationship problems and - depression) - negative occupational consequences (reduced work - performance) - #3 Advising the patient to abstain from alcohol or - to drink below national norms for moderate drinking - (as listed above). Status of ETOH Use Counseling: N/A B/C NO ETOH Use Metabolic Screening - Screen if on a Neuroleptic Medication - Metabolic screening should include: - Blood Pressure, BMI, Glucose or Hgb A1c, & a - Lipid profile from within the past 365 days. Metabolic Screening ([X]) Not Applicable, patient not on a neuroleptic. OR () Patient on a neuroleptic(s) . Enter below results for Hemoglobin A1C, and lipid panel if obtained during the last 365 days. BMI: 18.300 Blood Pressure: 102/61 Laboratory Results From [facility] (If applicable): Exam and Plan Mental Status Examination Ambulation Status: Steady gait Appearance: Young thin -Azerbaijani female Attitude towards examiner: Cooperative and calm Psychomotor activity: Normal psychomotor activity Behavior: Normal behavior Quality of speech: Normal speech Affect: Tearful Mood: Denied feeling depressed, reported feeling very anxious about being here Suicidal Ideation: Denied suicidal ideation Homicidal Ideation: Denied homicidal ideation Hallucinations: Denied hallucinations Paranoid/Delusional Material: Denied feeling paranoid, there were no delusions Difficulties with thought organization: No difficulties with thought organization Insight: Good insight Judgment: Good judgment in hypothetical situations, poor judgment and real-life situations as evidenced by the recent overdose Orientation: Alert and oriented to time place and person Cognition: No cognitive deficits Memory Function: Normal memory Estimate of intellectual functioning: Average Assets/Strengths Patient Identified Assets/Strengths: Honest likable supportive mother Impression/Plan Impression and Plan: 22-year-old single -Azerbaijani female who was admitted after taking an overdose. She reported that it was an impulsive act, mother confirmed that, the patient reportedly did that after her male friend reported that he wanted her or said why do not you kill yourself - Include all active medical diagnosis that require tx DSM 5 Diagnosis(es): Unspecified depressive disorder, most likely an adjustment disorder with mixed depressive and anxiety symptoms Social anxiety disorder - Initial Tx Plan for Active Psych & Medical Conditions Treatment Plan: I evaluated the patient for continued inpatient stay versus discharge Patient was interviewed in the presence of medical student who did part of the interview, I reviewed the patient's record leadite worker joined in the session and we had a phone conference with patient's mother Decision was to discharge patient home to continue treatment with care - Factors that would help patient function - in a less restrictive setting. Factors: None identified
[2017-12-22 12:19] VITALS: BP 110/63
--- NOTE | 2017-12-22 13:46 | History & Physical ---
General Information and HPI History of Present Illness: This young female came into the hospital because she was not feeling good and claims that she was overwhelmed and depressed. She does not give too much information but reports that she was not able to handle it herself and therefore came to the hospital and was admitted in psychiatry. She claims most of it was related to her job pressure and she denies any specific physical or medical problems recently. She claims that she had osteogenesis imperfecta and [place]-Schlatter syndrome and has had a few fractures in the past but there is no recent medical problems. 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 Her parents are the father lives in [place]. The patient is unmarried and denies drinking any alcohol and smoking cigarettes. Allergies/Medications Allergies: Coded Allergies: apple (THROAT ITCHES, EAR ITCHES, MOUTH ITCHES, TINGLING OF TONGUE 03/17/17) Home Med list Fluconazole (Diflucan) 150 MG TABLET 1 TAB PO ONCE PROPHYLAXIS Ibuprofen 600 MG TABLET 1 TAB PO TID PRN PAIN with food Lidocaine HCl (Lidocaine) 5 % OINT...G. 1 AMIRA TOP BID AFFECTED AREA(S) ( Reported) Norethindrone-E.estradiol-Iron (Junel Fe 1 MG-20 Mcg Tablet) 1 MG-20 MCG (21)/75 MG (7) TABLET 1 TAB PO DAILY CONTROL (Reported) Phenazopyridine HCl (Pyridium) 100 MG TABLET 1-2 TAB PO TID PRN DYRSURIA MAY TURN URINE ORANGE, TAKE WITH FOOD Past History Travel History Traveled to [place] past 21 day No Medical History Neurological: NONE EENT: NONE Cardiovascular: NONE Respiratory: NONE Gastrointestinal: NONE Hepatic: NONE Renal: NONE Musculoskeletal: OSTEOGENESIS IMPERFECTA Psychiatric: anxiety, depression Endocrine: NONE Blood Disorders: NONE Cancer(s): NONE 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 Home Employment History Employment Employed Profession/Employer [employer] Review of Systems Review of Systems Constitutional: Denies: no symptoms, chills, diaphoresis, fever. EENTM: Denies: no symptoms. Cardiovascular: Denies: no symptoms. Respiratory: Denies: no symptoms. GI: Denies: no symptoms. Genitourinary: Denies: no symptoms. Musculoskeletal: Denies: no symptoms. Skin: Denies: no symptoms. Neurological/Psychological: Reports: see HPI, depressed, emotional problems. Hematologic/Endocrine: Denies: no symptoms. Exam & Diagnostic Data Last 24 Hrs of Vital Signs/I&O Vital Signs Date Time Temp Pulse Resp B/P B/P Pulse O2 O2 Flow FiO2 Mean Ox Delivery Rate 12/22 1219 70 110/63 12/22 0734 98.2 73 102/61 12/21 1931 98.8 71 108/72 12/21 1650 98.1 71 99/64 12/21 1617 98.3 80 19 107/63 99 Room Air 12/21 1403 97.7 67 15 97/62 97 Room Air Intake & Output 12/22 1600 12/22 0800 12/22 0000 Intake Total Output Total Balance Patient 100 lb Weight Physical Exam General Appearance Alert, Oriented X3, Cooperative, No Acute Distress Skin No Rashes, No Breakdown, No Significant Lesion HEENT Atraumatic, PERRLA, EOMI, Mucous Membr. moist/pink Neck Supple, No JVD, No thryomegaly, +2 Carotid Pulse wo Bruit Lymphatic Cervical nl Cardiovascular Regular Rate, Normal S1, Normal S2, No Murmurs, Gallops, Rubs Lungs Clear to Auscultation, Normal Air Movement Abdomen Normal Bowel Sounds, Soft, No Tenderness, No Hepatospenomegaly, No Masses Neurological Exam Findings: Normal Gait, Normal Speech, Strength at 5/5 X4 Ext, Normal Tone, Cranial Nerves 3-12 NL, Reflexes 2+ Cranial Nerves II through XII: Within normal limits and intact Extremities No Clubbing, No Cyanosis, No Edema, No Tenderness/Swelling Assessment/Plan Assessment: This young female is admitted to the hospital because of increasing depression and too much stress. She has a history of osteogenesis imperfecta but there is no acute medical problem at this time and her physical exam is fairly stable without any acute problem. Her admission labs including a CBC and electrolytes and liver functions are all acceptable and her urine toxicology screen is negative. She does not require any other workup or treatment from medical standpoint. As Ranked By This Provider Problem List: 1. Depression Miscellaneous Miscellaneous Documentation Attending Case Discussed With: Wayne Pena MD Primary Care Physician: Saul Trevino MD Patient sees these Specialists none Level of Patient Care: JHONNY Belcher Attending MD Review Statement Attending Statement Attending MD Statement: examined this patient, reviewed EMR data (avail), discussed with nursing Attending Assessment/Plan: This young female is admitted for increasing depression and stress that she claims she cannot handle on her own. From medical standpoint she is stable without any acute problems and she has a history of osteogenesis imperfecta in the past but presently she is stable and does not require any treatment or workup from medical standpoint and will be seen as needed.
--- NOTE | 2017-12-22 14:14 | Patient Discharge Instructions ---
Psych Discharge Inst General Discharge Information Reason for Admission: Overdose Psy Discharge Primary Diag+ Unspecified Depressive Di Social Anxiety Disorder Psy Discharge Secondary Diag+ Adjustment Disorder with Summary Tests/Major Procedures Lab ALT 23 U/L 12/20/17 1242 AST 17 U/L 12/20/17 1242 Albumin 3.6 g/dL 12/20/17 1242 Albumin/Globulin Ratio 1.5 % 12/20/17 1242 Alkaline Phosphatase 53 U/L 12/20/17 1242 Globulin 2.4 gm/dL 12/20/17 1242 TSH &T3 &Free T4 Intrp 0.503 uIU/mL 12/20/17 1242 Total Protein 6.0 g/dL L 12/20/17 1242 Hct 35.2 % L 12/20/17 1242 Hgb 11.6 G/DL L 12/20/17 1242 RBC 4.15 /CUMM L 12/20/17 1242 WBC 4.0 /CUMM L 12/20/17 1242 Studies Pending at DC: None Patient Instructions Contact Information Your Psychiatrist [facility] was Wayne Pena MD * If you are experiencing an emergency related to this hospitalization, please call [phone] to contact the treating psychiatrist or the psychiatrist-on- call. * To Request a copy of your medical records, please contact the Medical Records Department at [phone]. * To request results of studies pending at the time of discharge, please call [phone]. * Continue your Medications until directed to stop by your Healthcare provider. General Medication Information Please continue to take your new medications and your continued home medications , unless otherwise indicated on your discharge medication list, or unless directed by your MD or DI[facility]ORTER to stop them. Special Instructions Diet Regular Activity As Tolerated - Tobacco Use Treatment Offered Post DC Medications Offered: Not Applicable Post DC Tobacco Treatment Plan: Not Applicable - EtOH/Drug Use D/O Treatment Offered Post DC Medications Offered: NA-No EtOH/Drug Use D/O Post DC EtOH/SubAbuse TX Plan: NA-No EtOH/Drug Use D/O Metabolic Screening Not Applicable, patient not on a neuroleptic. Advance Directives Does the Patient have Medical Advance Directives No/Refused further info Does Pt have Psychiatric Advance Directives? No/Refused further info Does Patient have a Designated Surrogate Decision Maker: No Information About Psychiatric Advance Directives Provided? Yes Discharge Plan Post Hospital Treatment Plan: Daren
[2017-12-22 15:49] VITALS: BP 102/60
--- NOTE | 2017-12-22 16:00 | DISCHARGE SUMMARY REPORT-PSYCH ---
Visit Information Visit Dates/Diagnosis' Admission Date: 12/21/17 Discharge Date: 12/22/17 Reason for Admission: Overdose Psy Discharge Primary Diag: Unspecified Depressive Di Social Anxiety Disorder Psy Discharge Secondary Diag: Adjustment Disorder with Hospital Course Significant Lab Findings: Lab Hct 35.2 % L 12/20/17 1242 Hgb 11.6 G/DL L 12/20/17 1242 Acetaminophen < 10.0 ug/mL L 12/20/17 1242 Course Allergies: Coded Allergies: apple (THROAT ITCHES, EAR ITCHES, MOUTH ITCHES, TINGLING OF TONGUE 03/17/17) Discharge HBIPS - Tobacco Use Treatment Offered - EtOH/Drug Use D/O Treatment Offered Metabolic Screening - Screen if on a Neuroleptic Medication - Metabolic screening should include: - Blood Pressure, BMI, Glucose or Hgb A1c, & a - Lipid profile from within the past 365 days. Discharge Instructions General Discharge Information Discharge Diet Regular Discharge Activity As Tolerated Referrals Ordered Referrals Provider Referral 12/25/17 For Groups: [[facility]] [address] [phone] Appointment: 12/25/17, at 3pm with Mira Christopher LCSW Patient will discuss group therapy and medication management with Mira during this appointment. Provider Referral 12/29/17 For Groups: [[address] [phone] Medication Appointment: 12/29/17, at 12:30pm with Carri Cartwright APRN Prescriptions Continue taking these medications: Norethindrone-E.estradiol-Iron (Junel Fe 1 MG-20 Mcg Tablet) 1 MG-20 MCG (21)/75 MG (7) TABLET 1 Tablet ORAL DAILY Qty = 28 Lidocaine HCl (Lidocaine) 5 % OINT...G. 1 Application On the skin TWICE DAILY Ibuprofen (Ibuprofen) 600 MG TABLET 1 Tablet ORAL THREE TIMES DAILY as needed for PAIN Qty = 30 Instructions: with food Phenazopyridine HCl (Pyridium) 100 MG TABLET 1-2 Tablet ORAL THREE TIMES DAILY as needed for DYRSURIA Qty = 10 Instructions: MAY TURN URINE ORANGE, TAKE WITH FOOD Fluconazole (Diflucan) 150 MG TABLET 1 Tablet ORAL GIVE ONCE Qty = 1 1 Tablet ORAL GIVE ONCE Qty = 1
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
== END 2017-12-22 16:50 | DRG 754 ==
LOC: ERH 12:01 → ERHI 12-21 13:16 → CP SOUTH 12-21 13:16 → ENRESERV 12-21 14:58 → ENTRNSPT 12-21 16:17 → EDTRNSPT 12-21 16:29 → EDTRNSPTSTS 12-21 16:29 → CP SOUTH 12-21 16:32 → CMPTRNSPT 12-21 16:39 → CP SOUTH 12-22 16:50
PROVIDERS: Emergency Medicine
DX: F32.9 Major depressive disorder, single episode, unspecified (principal); F40.10 Social phobia, unspecified; F43.20 Adjustment disorder, unspecified
CPT/HCPCS: 80307; 81025; 93005; 93010; G0463; G0480; Q2036

== ENCOUNTER 2018-08-09 15:03 | Emergency (ER) | payer OTHER ==
[~2018-08-09] VITALS: Ht 157.5 cm; Wt 47.6 kg
[~2018-08-09 15:03] MED LIST changes: +DICLEGIS DR 101 EACH PO; +EPIPEN 2-P0.3 MG/0.3 IM; +HYDROXYZINE PAM50 M1 PO; +MEDROL4 M2 PO
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
[2018-08-09] MEDS ORDERED: LIDODERM1 EACH TOP (17:18)
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
[2018-08-09 17:26] VITALS: BP 98/58
== END 2018-08-09 17:51 ==
LOC: ERH 15:03
DX: T76.11XA Adult physical abuse, suspected, initial encounter (principal); O9A.312 Physical abuse complicating pregnancy, second trimester; M25.562 Pain in left knee; R10.9 Unspecified abdominal pain; Q78.0 Osteogenesis imperfecta; Y04.0XXA Assault by unarmed brawl or fight, initial encounter; Y07.411 Sister, perpetrator of maltreatment and neglect
CPT/HCPCS: J3101